=== PATIENT | male | born 1940 | race Caucasian/White ===

== ENCOUNTER 2017-01-26 12:52 | Inpatient (IN) | payer MEDICARE, OTHER ==
[~2017-01-26] VITALS: Ht 182.9 cm; Wt 105.7 kg
--- NOTE | ~2017-01-26 | ECH ---
Transthoracic Echocardiography Report (TTE) Demographics Patient Name SANKET CR Date of Study 01/27/2017 Patient Number [id number] Visit Number [id number] Date of 1940 Room Number 401 Accession Number [id number] Gender Male Age 76 year(s) Referring Tae Mulligan Manager Operational Kayla Chong Physician RDCS Physician Génesis Moe MD Mechanics Supervisor Physician Jatin Supervising Ordering Physician Tae Mulligan MD, MD/MLP Nurse Stress Marine Fire[employer] Conclusions Contractility Score Summary Normal Left Ventricular contractility was noted. Summary Technically good exam. The estimated left ventricular ejection fraction is 60-65%. The left ventricle is mildly dilated . The left atrium is moderately dilated by LA volume index measurement. The right atrium is mildly dilated. Recommendation The patient will be given the results of this study by the physician who ordered the exam. Procedure Type of Study TTE procedure:Echo Complete SF. Procedure Date Date: 01/27/2017 Start: 02:32 PM Technical Quality: Good visualization Indications:Edema. Appropriate Use Criteria: 8 Height: 72 inches Weight: 232 pounds BSA: 2.27 m Rhythm: NSR HR: 75 bpm BP: 119/60 mmHg M-Mode/2D Measurements LV Diastolic Dimension: 5.99 cm LV Systolic Dimension: 3.4 cm LV Septum Diastolic: 0.9 cm LV PW Diastolic: 0.91 cm AO Root Dimension: 2.71 cm Cardiac Output: 8.43 l/min LA Dimension: 4.66 cm Cardiac Index: 3.71 l/min*m RV Diastolic Dimension: 3.81 cm LA volume index: 46 ml/m LVOT: 2.2 cm LVOT VTI: 29.57 cm RV Base: 3.9 cm LV Stroke volume: 112.35 ml RV Mid: 2.3 cm LV Stroke volume index: 49.49 ml/m TAPSE: 3 cm TDI-S': 14 cm/s Doppler Measurements AV Peak Velocity: 1.7 m/s MV Peak E-Wave: 1.32 m/s AV Peak Gradient: 11.56 mmHg MV Peak A-Wave: 1.03 m/s AV Mean Gradient: 6.75 mmHg MV E/A Ratio: 1.29 LVOT Peak Velocity: 1.22 m/s MV P1/2t: 62.5 msec AV Area (Continuity):3.44 cm MV Deceleration Time: 211.3 msec TR Velocity:2.6 m/s MV Area (PHT): 3.52 cm TR Gradient:27.04 mmHg PV Peak Velocity: 0.85 m/s Estimated RAP:3 mmHg PV Peak Gradient: 2.86 mmHg Estimated RVSP: 30 mmHg Estimated PASP: 30.04 mmHg E' Septal Velocity: 0.09 m/s A' Septal Velocity: 0.06 m/s E' Lateral Velocity: 0.14 m/s A' Lateral Velocity: 0.12 m/s RA Area: 18.35 cm Findings Left Ventricle The left ventricle is mildly dilated . Diastolic assessment reveals normal relaxation. Right Ventricle Normal right ventricle structure and function. Left Atrium The left atrium is moderately dilated by LA volume index measurement. Right Atrium The right atrium is mildly dilated. Mitral Valve Normal mitral valve structure and function. Mild mitral regurgitation by color Doppler. Aortic Valve The aortic valve is mildly sclerotic. Tricuspid Valve Normal tricuspid valve structure and function. Mild tricuspid regurgitation by color Doppler. Normal pulmonary pressures. Pulmonic Valve Normal pulmonic valve structure and function. Pericardial Effusion No evidence of pericardial effusion. Miscellaneous Visualized portions of the aortic root and ascending aorta appear normal in size. Pleural Effusion No evidence of pleural effusion. Contractility Score LV regional wall motion:(0-Non visualized 1-Normal 2-Hypokinesis 3-Akinesis 4-Dyskinesis 5-Aneurysm) Signature
--- NOTE | ~2017-01-26 | WND ---
ADMIT: 01/26/2017 RM/LOC: 401 [facility] MR#: [id number] [address] [address] [place] [address] Wound Care Clinic SEX: M AGE: 76 : 1940 DATE OF VISIT: 01/27/2017 TIME OF VISIT: 20 minutes. REASON FOR VISIT: Evaluation of cellulitis to right lower extremity. This is a consult coming from Dr. Strong. HISTORY OF PRESENT ILLNESS: Sanket is a 76-year-old male, who presented to the emergency room yesterday with increasing redness to his right lower extremity. He recently finished a course of Augmentin for a similar situation with cellulitis to his left lower extremity. This was prescribed by Dr. Strong. He noticed increasing malaise, fatigue, headache, and fever and was noted to have a bright red foot. He was admitted for IV antibiotics and steroids. They will be drawing a uric acid on him as well. His white count was 3.2 on admission. His sedimentation rate was 32. He does report some pain in that right lower extremity specifically even a few lightly rub over the top of it. I asked him what it felt like and he stated it felt like somebody was grabbing tight to his legs. I asked him if it was a superficial skin pain or bone pain and he could not clarify; however, he was able to move his ankle plantar dorsally and rotation without difficulty. PAST MEDICAL HISTORY: BPH, depression, chronic kidney disease, anxiety, and anemia. MEDICATIONS: 1. Flomax. 2. Myrbetriq. 3. Neurontin. 4. Proscar. 5. Protonix. 6. Seroquel. 7. Therapeutic multivitamin. 8. Vitamin C. 9. Vitamin D. 10.Zoloft. 11.Zyloprim. 12.Lovenox. 13.Vancomycin. 14.Zosyn. ALLERGIES: No known medication allergies. FAMILY HISTORY: The patient reports that he has a family history of peripheral vascular disease in his dad and his mom. His dad at 52 or 53 from pneumonia. His mom at 83 or 84 years old from old age. SOCIAL HISTORY: He is and resides here in [place], [place] with his . He used to smoke, but has not smoked since the 1960s. At which time, he was smoking a pack of cigarettes a day. He denies any alcohol or ADMIT: 01/26/2017 RM/LOC: 401 [facility] MR#: [id number] [address] [address] [place] [address] W[facility] Care Clinic SEX: M AGE: 76 : 1940 illicit drug use. REVIEW OF SYSTEMS: He denies nausea vomiting or diarrhea. He denies chest pain, shortness of breath, or cough. He does report some fever, chills, and body aches. OBJECTIVE: VITAL SIGNS: Blood pressure 119/60, pulse 67, pulse ox 92%, respirations 18, and temp 96.5 degrees Fahrenheit. GENERAL: An alert and oriented 76-year-old male. EXTREMITIES: Assessment of his right lower extremity reveals petechiae noted over the right anterior medial and posterior lower extremity. He has a 2+ dorsalis pedis pulse 1+ edema. Right lower extremity is warm to palpation. ROM is appropriate. Right plantar toe has a brown callus that is stable that measures 2 cm in length x 2 cm in width. On the medial surface of the first metatarsal head, he has a callus that measures 2 cm in length x 1 cm in width. Circumferential measurements of the right lower extremity foot 25 cm, ankle 25 cm, and calf 37 cm. Left lower extremity has 1+ edema. He has hemosiderin staining on the anterior medial and lateral left lower extremity. He has a 2+ dorsalis pedis pulse. Circumferential measurements of the right foot 25 cm, right ankle 23 cm, and calf 37 cm. On the plantar surface of his left hallux, he has a callused area that measures 5 cm in length x 5 cm in width. There is a small pinpoint open area approximately 0.5 cm circumferential with a red dry bed. No periwound erythema is noted. No induration or fluctuance is noted. ASSESSMENT: 1. Cellulitis to right lower extremity. Question gout. 2. Callused areas to bilateral great toes. PLAN: Sanket reported that he saw Dr. Lang 2 weeks ago. At which time, he paired down the calluses to bilateral great toes. He reports that he was supposed to see him today in clinic and forgot cancel the appointment. I did contact Dr. Lang and let him know that Sanket is in the hospital in room #401. Dr. Lang reported that he would follow up with him regarding the bilateral callused toes. At this point, Wound Care recommends elevating bilateral lower extremities and Aloe Boss to bilateral lower extremities daily. Wound Care will continue to follow. Clara Ramachandran APRN/ champ JOB #: [id number] CC: Dorys Strong, Attending Physician Dorys Strong, Family Physician
[~2017-01-26 12:52] MED LIST: ASCORBIC ACID500 MG PO; B COMPLEX1 EACH PO; DELTASONE DPS10 MG PO; FLOMAX DPS0.4 MG PO; MUCINEX600 MG PO; PRILOSEC DPS20 MG PO; PROSCAR DPS5 MG PO; SEROQUEL25 MG PO; THERA1 EACH PO; ZITHROMAX TRI-500 MG PO; ZOLOFT DPS100 MG PO; ZOLOFT DPS50 MG PO
--- NOTE | 2017-01-31 15:03 | CO ---
ADMIT: 01/26/2017 RM/LOC: 401 [facility] MR#: [id number] [address] [address] [place] [address] Consultation SEX: M AGE: 76 : 1940 DATE OF CONSULTATION: 01/27/2017 ATTENDING PHYSICIAN: Dorys Strong CONSULTING PHYSICIAN: Yazan Lang DPM CHIEF COMPLAINT: Cellulitis, right leg. HISTORY OF PRESENT ILLNESS: This patient was recently seen in the office for ulceration of the 1st digit bilaterally. The patient has had his shoes modified and has had healing of the ulceration including reduction and drainage. On the , the patient began to have fever, which he states was 104 that evening and was seen and subsequently admitted for cellulitis and was started on antibiotics. The patient has had resolution of the fever after starting antibiotics though still has bilateral first digit pain and redness and swelling of the right calf. PAST MEDICAL HISTORY: Heart disease, chronic kidney disease, depression, BPH, anemia, peripheral vascular disease, peripheral neuropathy, and chronic ulceration. PAST SURGICAL HISTORY: Vertebroplasty. SOCIAL HISTORY: The patient is living independently. Denies tobacco, alcohol, or drug abuse. FAMILY HISTORY: Noncontributory. ALLERGIES: NO KNOWN DRUG ALLERGIES. MEDICATIONS: Please see the list for current medications. REVIEW OF SYSTEMS: Negative except for stated above. PHYSICAL EXAMINATION: VITAL SIGNS: Temp 97.2, T-max is 100.1, pulse is 71, respirations 18, blood pressure is 112/59, and O2 is 96% on room air. VASCULAR: DP and PT pulses are faintly palpable bilaterally. Capillary refill time is approximately 4 to 5 seconds to the digits bilaterally. Right lower extremity edema. NEUROLOGIC: Light touch sensation is absent to the feet bilaterally. DERMATOLOGIC: The patient currently has no ulcerations of the digits. There is significant callus formation of the first digit bilaterally with blood staining. After debridement, no ulceration, but there is very atrophic skin present at the base. No erythema of the first digit bilaterally. There is erythema and proximal tracking across the entire right calf with some red streaking along the saphenous vein with prominent nodes in the popliteal space. MUSCULOSKELETAL: Severe contracture of the digits including the first digit bilaterally as well as increased arch height bilaterally with weightbearing ADMIT: 01/26/2017 RM/LOC: 401 [facility] MR#: [id number] [address] [address] [place] [address] Consultation SEX: M AGE: 76 : 1940 surface of the distal tip of the first digit bilaterally. LABORATORY DATA: Blood culture, gram-negative rods. ESR is 32. Sodium is 140, potassium is 3.6, BUN is 23, creatinine is 1.0. Procalcitonin is 0.07. Lactic acid is 1.6. IMAGING: Foot x-ray shows no cortical breakdown or acute signs of osteomyelitis or subcutaneous gas. Venous ultrasound negative for DVT. ASSESSMENT: 1. Cellulitis, which is suspected to be secondary to previous ulceration of the first digit though no current ulceration is present. 2. Neuropathy. 3. Peripheral vascular disease. 4. Callus. 5. Foot pain. 6. Bacteremia. 7. History of gout. PLAN: The calluses bilaterally were sharply debrided with a 15 blade without complication. No ulceration identified, but we will protect these areas with Band-Aids and protective shoes. We will provide vascular workup including an arterial duplex of the lower extremities bilaterally. We will have the patient continue on IV antibiotics. The patient is to walk with accommodative shoes any time he is up and ambulating. We will monitor as his care progresses and follow up with the arterial duplex once completed. No dressing is required at this time though if there is further skin breakdown, we will have this remain covered at all times. Yazan Lang DPM/ champ JOB #: [id number] CC: Dorys Strong, Attending Physician Dorys Strong, Family Physician
--- NOTE | 2017-01-31 23:43 | ER ---
ADMIT: 01/26/2017 RM/LOC: 401 [facility] MR#: [id number] [address] [address] [place] [address] Emergency Room Report SEX: M AGE: 76 : 1940 DATE: 01/26/2017 ADDENDUM: This patient comes to the ER because at home he had a fever of 104. When he comes into the ER, it was 102. His complaint is having an infection in his right lower leg. He recently took his last Augmentin yesterday for a cellulitis that he had on the left lower leg that has cleared up quite nicely. He has chills and sweats and generalized body aching. No vomiting or diarrhea. On physical exam, his temp was initially 101 in the ER, when I re- evaluated him at 1532 hours, it was 102. His white count was 3.2, lactic acid was 1.6. He did hit our initial septic criteria. He was given sepsis fluid bolus recommended by his by protocol. Also given Tylenol 1 g p.o. I did a Doppler of his right lower leg, which was negative for DVT. DIAGNOSIS: Cellulitis of the right leg. I did start him on Zosyn and Vanco. I consulted with Dr. Carney, and this patient will be admitted by Dr. Max who is on-call for Dr. Strong. Please refer to his dictation for further treatment and my T-sheet. IBETH Griffith / Maikel Carney MD / modl JOB #: [id number] CC: Dorys Strong MD, Attending Physician Dorys Strong MD, Family Physician
[2017-02-03] MEDS ORDERED: FLOMAX DPS0.4 MG PO (17:14)
[2017-02-03] MEDS ORDERED: ZOLOFT DPS100 MG PO (17:14)
[2017-02-03] MEDS ORDERED: ZOLOFT DPS50 MG PO (17:15)
[2017-02-03] MEDS ORDERED: MYRBETRIQ25 MG PO (17:15)
[2017-02-03] MEDS ORDERED: PRILOSEC DPS20 MG PO (17:16)
[2017-02-03] MEDS ORDERED: THERA1 EACH PO (17:16)
[2017-02-03] MEDS ORDERED: NEURONTIN DPS600 MG PO (17:16)
[2017-02-03] MEDS ORDERED: PROSCAR DPS5 MG PO (17:16)
[2017-02-03] MEDS ORDERED: SEROQUEL25 MG PO (17:17)
[2017-02-03] MEDS ORDERED: VITAMIN D-32000 UNI1 PO (17:17)
[2017-02-03] MEDS ORDERED: ASCORBIC ACID500 MG PO (17:17)
[2017-02-03] MEDS ORDERED: VITAMIN B COMP1 EACH PO (17:17)
[2017-02-03] MEDS ORDERED: INVANZ1 GM IV (17:18)
[2017-02-03] MEDS ORDERED: COMBIVENT RESPIM4 GM IH (17:18)
[2017-02-03] MEDS ORDERED: ZYLOPRIM-DPS100 MG PO (17:19)
--- NOTE | 2017-02-13 07:44 | DS ---
ADMIT: 01/26/2017 RM/LOC: 529 [facility] MR#: [id number] [facility]#: [id number] [address] [address] [place] [address] Discharge Summary SEX: M AGE: 76 : 1940 ADMISSION DATE: 01/26/2017 DISCHARGE DATE: 02/02/2017 DISCHARGE DIAGNOSES: 1. Cellulitis involving his left lower extremity with resolution bacteremia, Morganella. 2. Chronic kidney disease. 3. Depression. 4. History of benign prostatic hyperplasia. 5. Peripheral vascular disease. 6. History of peripheral neuropathy. 7. History of bilateral foot ulcerations. 8. History of pancytopenia. HISTORY OF PRESENT ILLNESS: Well documented in his H and P. His laboratory and radiographic assessment is as followed. On admission, his white count was 3.2, hemoglobin 11.5, and platelet count 57,000. At the time of discharge, white blood cell count was 2.4, hemoglobin 9.6, platelet count 86,000. INR was 1.2. Urine showed no acute abnormalities. Serum sodium was 107, BUN and creatinine was 18 and 0.9. On admission blood sugar was 128, B12 of 851, C- reactive protein 3.73, ferritin level 294. His Vanco trough is 11. Hepatitis serology was nonreactive. Blood culture showed evidence of Morganella morganii, SSP Lennox isolated in 2 of 2 sets. Urine micro showed Morganella less than 10,[address] of chest shows [id number]-[id number] bilateral pleural effusions overlapping dependent atelectasis, coronary artery calcification, nodular contour to the liver, again suggesting of cirrhosis. MRI showed tenderness, edema, soft tissue swelling, component of cellulitis likely there is no drainable abscess. No evidence of osteomyelitis. X-ray was negative of chest. Venous Doppler of lower leg showed no evidence of deep venous thrombosis. Arterial Doppler showed diminished flow in the right dorsal pedis, also no significant proximal stenosis. Echocardiogram showed estimated left ventricular ejection fraction is 60-65%, left ventricle is mildly dilated. Left atrium is mildly dilated by LV volume. EKG showed sinus rhythm, old inferior wall ME. HOSPITAL COURSE: This elderly white male was admitted to [facility] after having a febrile illness with shaky chills as well as development of red hot right foot. He has a known history of cirrhosis with evidence of pancytopenia. He initially had an x-ray of his foot and in addition blood cultures were obtained. He was placed on Lovenox, also placed on allopurinol. Echocardiogram was obtained. He was seen and evaluated by myself as well as Dr. Lang. Arterial Dopplers were performed, which showed some mild impairment in circulation. He had an MRI, which showed no evidence of osteomyelitis. He underwent CTA of chest, which showed note reports below. He had continued improvement. We did ask Hematology to ADMIT: 01/26/2017 RM/LOC: 529 [facility] MR#: [id number] [address] [place] [address] [place] [address] Discharge Summary SEX: M AGE: 76 : 1940 follow. 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 Hepatic serology was performed without any evidence of abnormalities. Also iron studies were performed, which showed no evidence of elevated ferritin or iron level consistent with hemochromatosis is a possible etiology. He was given IV Lasix on 02/01/2017. In addition, I did ask Dr. Romano to see for duration of therapy with Morganella bacteremia. He had continued improvement of his foot with resolution of cellulitis. He subsequently was discharged home on outpatient antibiotics through February 09, Invanz 1 g IV daily. CBC and BMP weekly. He was with placement of a mid line. I will follow him up in 10 days. He will be seen by Podiatry in 1 week. He was started on Combivent metered dose inhaler as well as his med as per his MAR. He was discharged in stable condition. Dorys Strong MD/ champ JOB #: [id number] CC: Dorys Strong MD, Attending Physician Dorys Strong MD, Family Physician
--- NOTE | 2017-02-20 10:36 | CO ---
ADMIT: 01/26/2017 RM/LOC: 529 [facility] MR#: [id number] [address] [address] [place] [address] Consultation SEX: M AGE: 76 : 1940 DATE OF CONSULTATION: 02/01/2017 ATTENDING PHYSICIAN: Dorys Strong CONSULTING PHYSICIAN: Zoë Romano MD REASON FOR CONSULTATION: Morganella bacteremia. Thank you, Dr. Strong for the consult and involving me in this patient's care. HISTORY OF PRESENT ILLNESS: The patient is a 76-year-old man, who presented to the ER with complaining of bilateral leg swelling and redness, mainly in the right leg. He was followed up by Dr. Lang as an outpatient for ulceration of his 1st digit bilaterally. He also reported fevers of 104 at the time of admission and was admitted for cellulitis. His admission blood cultures grew Morganella morganii in both bottles. He was started on Zosyn and his fevers resolved. His repeat blood culture has been negative, and his cellulitis in both legs almost completely resolved. He was also seen by Dr. Lang in the hospital, who debrided bilateral leg ulcers. At present, the patient denies any complaints. Prior to the admission, he had completed a course of Augmentin as an outpatient. PAST MEDICAL HISTORY: 1. Chronic kidney disease. 2. Depression. 3. BPH. 4. Peripheral vascular disease. 5. Peripheral neuropathy. 6. Bilateral feet ulcer. PAST SURGICAL HISTORY: Vertebroplasty. SOCIAL HISTORY: The patient lives at home. Denies any smoking, alcohol, or recreational drug use. FAMILY HISTORY: Significant for cancer in his brother. ALLERGIES: NO KNOWN DRUG ALLERGIES. CURRENT MEDICATION: 1. Flomax. 2. Neurontin. 3. Myrbetriq. 4. Proscar. 5. Protonix. 6. Seroquel. 7. Multivitamin. 8. Vitamin C. ADMIT: 01/26/2017 RM/LOC: 529 [facility] MR#: [id number] [address] [facility] [address] [place] [phone] [place] [address] Consultation SEX: M AGE: 76 : 1940 9. Vitamin D. 10.Zoloft. 11.Zyloprim. 12.Lovenox. 13.Zosyn 3.375 g every 8 hours. REVIEW OF SYSTEMS: A 10-point review of systems negative except as mentioned in HPI. PHYSICAL EXAMINATION: VITAL SIGNS: Current temperature 98, heart rate 76, respirations 20, blood pressure 142/79, and 90% on room air. GENERAL: No acute distress. HEENT. Head is normocephalic and atraumatic. Extraocular movements intact. CHEST: Decreased breath sounds at bases. CARDIOVASCULAR: S1, S2 heard. Regular rate and rhythm. ABDOMEN: Soft, nontender, and nondistended. Active bowel sounds. MUSCULOSKELETAL: Bilateral lower extremity, there are ulcers at the base of the 1st digit in both feet. There is no erythema noted today in both feet. PSYCH: Normal affect. Memory intact. DATA REVIEW: Labs and imaging were reviewed. ASSESSMENT AND PLAN: 1. Morganella morganii bacteremia, likely secondary to bilateral feet ulcers and cellulitis. Clinically, he has improved. At this time, I will narrow his antibiotics down to ertapenem IV 1 g once daily. His repeat blood cultures have been negative. I will continue the antibiotic for a total of 2 weeks until 02/09/2017. He has no evidence of urinary tract infection. 2. Bilateral feet ulcers. Continue follow up with Dr. Lang as an outpatient. 3. Right leg cellulitis, resolved. 4. Chronic kidney disease. Thank you for the consult. Zoë Romano MD/ champ JOB #: [id number] CC: Dorys Strong, Attending Physician Dorys Strong, Family Physician
--- NOTE | 2017-02-27 08:35 | HP ---
ADMIT: 01/26/2017 RM/LOC: 401 [facility] MR#: [id number] [address] [place] [phone] [place] [address] History and Physical SEX: M AGE: 76 : 1940 DATE OF SERVICE: 01/26/2017 REASON FOR HOSPITALIZATION: Cellulitis, acute inflammatory changes of the foot with fever. HISTORY OF PRESENT ILLNESS: This is a 76-year-old male patient of Dr. Strong, who recently finished a course of Augmentin after presenting with a left foot cellulitis. He returned today to the emergency room after having a general sense of malaise, fatigue, headache, and fever, and was noted to have a bright red right foot. He is now being admitted for care and management of presumed cellulitis. The migratory nature of this inflammation and acute and intense pain brings up concerns of possible acute gout flare. We will investigate this as well. PAST MEDICAL HISTORY: His medical history does include BPH, depression, CKD, anxiety, anemia. MEDICATIONS: Currently being compiled and listed, include tamsulosin for his BPH. Please refer to his admission orders for review. SOCIAL HISTORY: He does not smoke and has not for several decades. He is . His is at bedside. FAMILY HISTORY: Noncontributory. REVIEW OF SYSTEMS: Negative for current chest pain. He did have some shortness of breath, headache, and fever when he presented and reports that he recently completed his course of oral Augmentin for an opposite foot cellulitis infection. PHYSICAL EXAMINATION: GENERAL: He is pleasant. His blood pressures have ADMIT: 01/26/2017 RM/LOC: 401 [facility] MR#: [id number] [address] [address] [place] [address] History and Physical SEX: M AGE: 76 : 1940 improved with fluids and he is starting to feel better with fluid hydration. HEART: Regular. LUNGS: Clear. ABDOMEN: Soft. SKIN: He has deep red changes of the skin of the right forefoot. LABORATORY DATA: His white count is 3.2. IMPRESSION: Cellulitis, question acute gouty flare. PLAN: Admit. Antibiotic therapy. Check his uric acid level. Give him a dose of steroids and observe closely. Bk Max DO/ champ JOB #: [id number] CC: Dorys Strong, Attending Physician Dorys Strong, Family Physician
== END 2017-02-02 13:50 | disposition home or self-care (01) | DRG 603 ==
LOC: ER 12:52 → 4PCU 15:36 → 5MS 15:36
PROVIDERS: ADMIT Internal Medicine
PROC: 0HDMXZZ Extraction of Right Foot Skin, External Approach (ICD-10-PCS; principal; 2017-01-27)
PROC: 0HDNXZZ Extraction of Left Foot Skin, External Approach (ICD-10-PCS; principal; 2017-01-27)
DX: L03.116 Cellulitis of left lower limb (principal); D61.818 Other pancytopenia; R78.81 Bacteremia; K74.60 Unspecified cirrhosis of liver; N39.0 Urinary tract infection, site not specified; L03.115 Cellulitis of right lower limb; G62.9 Polyneuropathy, unspecified; L97.519 Non-pressure chronic ulcer of other part of right foot with unspecified severity; L97.529 Non-pressure chronic ulcer of other part of left foot with unspecified severity; F32.9 Major depressive disorder, single episode, unspecified; N40.0 Benign prostatic hyperplasia without lower urinary tract symptoms; N18.9 Chronic kidney disease, unspecified; D73.1 Hypersplenism; I25.2 Old myocardial infarction; I25.10 Atherosclerotic heart disease of native coronary artery without angina pectoris; F41.9 Anxiety disorder, unspecified; I73.9 Peripheral vascular disease, unspecified; M20.5X2 Other deformities of toe(s) (acquired), left foot; M20.5X1 Other deformities of toe(s) (acquired), right foot; L84 Corns and callosities; M10.9 Gout, unspecified